=== PATIENT | female | born 1960 | race Two or more races ===

== ENCOUNTER 2017-09-30 10:09 | Outpatient (CLI) | payer OTHER | END 2017-09-30 10:27 | disposition home or self-care (01) | LOC: MAMO-SONO 10:09 | DX: Z12.31 Encounter for screening mammogram for malignant neoplasm of breast (principal); N60.11 Diffuse cystic mastopathy of right breast; N60.12 Diffuse cystic mastopathy of left breast ==

== ENCOUNTER 2020-12-27 12:05 | Outpatient (CLI) | payer OTHER | END 2020-12-27 12:27 | disposition home or self-care (01) | LOC: RAD 12:05 | DX: M54.2 Cervicalgia (principal); M54.6 Pain in thoracic spine; M54.59 Other low back pain ==

== ENCOUNTER 2025-01-11 13:45 | Outpatient (CLI) | payer OTHER | END 2025-01-11 13:53 | disposition home or self-care (01) | LOC: RAD 13:45 | PROVIDERS: ATTEND Physical Medicine & Rehabilitation | DX: M25.551 Pain in right hip (principal) ==

== ENCOUNTER 2025-01-25 07:43 | Outpatient (CLI) | payer OTHER | END 2025-01-25 07:44 | disposition home or self-care (01) | LOC: SONOGRAMA 07:43 | PROVIDERS: ATTEND Internal Medicine Gastroenterology | DX: R16.1 Splenomegaly, not elsewhere classified (principal); E03.8 Other specified hypothyroidism ==